=== PATIENT | male | born 1990 | race Caucasian/White ===

== ENCOUNTER 2017-07-10 13:29 | Observation (INO) ==
[2017-07-10] MEDS ORDERED: ceFAZolin 2,000 MG in D5% in Water (Mini-Bag+) 100 ML IVPB ONE (18:14)
[2017-07-10 18:40] LABS: Basophils # 0.1 K/mcL (0.0-0.2); Basophils % 1.1 %; Eosinophils # 0.2 K/mcL (0.0-0.6); Eosinophils % 1.5 %; Hematocrit 45.6 % (37.5-50.1); Hemoglobin 15.8 g/dL (12.9-16.9); Immature Granulocytes % 0.5 % (0-4); Lymphocytes # 3.6 K/mcL (0.6-4.6); Lymphocytes % 32.9 %; Mean Corpuscular HGB Conc 34.6 g/dL (31.6-35.5); Mean Corpuscular Hemoglobin 30.3 pg (28.0-33.3); Mean Corpuscular Volume 87.4 fL (83.0-100.0); Mean Platelet Volume 11.1 fL (9.4-12.4); Monocytes # 0.9 K/mcL (0.0-1.3); Monocytes % 8.4 %; Neutrophils # 6.1 K/mcL (1.6-8.9); Platelet Count 200 K/mcL (140-400); Red Blood Count 5.22 M/mcL (4.19-5.50); Red Cell Distribution Width 13.5 % (11.5-14.5); Segmented Neutrophils % 55.6 %
[2017-07-10 18:48] LABS: Activated Partial Thrombo Time 31.8 Seconds (26.0-36.0)
[2017-07-10] MEDS ORDERED: CeFAZolin Syr 3,000MG/30 ML 3,000 MG/30 ML SYRINGE IVPB ONE (18:48)
[2017-07-10 18:53] LABS: BUN/Creatinine Ratio 18 (6-26); Blood Urea Nitrogen 15 mg/dL (8-26); Calcium 9.5 mg/dL (8.6-10.8); Carbon Dioxide 23 mEq/L (19-29); Chloride 109 mEq/L (98-109); Glucose 135 mg/dL (70-99); Osmolality,Calculated 289 (280-300); Potassium 4.2 mEq/L (3.5-4.5); Sodium 138 mEq/L (136-145); eGFR For African Americans > 60 (> 60); eGFR For Non-African Americans > 60 (> 60)
[2017-07-10] MEDS: *HR* Morphine 2 MG/ML SYRINGE IVP PRN ×2 (19:07→23:43)
[2017-07-10] MEDS: Ringers Solution, Lactated 1,000 ML IVC SCH (21:37)
[2017-07-11 03:54] VITALS: BP 153/87
[2017-07-11] MEDS: *HR* Morphine 2 MG/ML SYRINGE IVP PRN ×2 (06:52→11:04)
--- NOTE | 2017-07-11 10:46 | Spine - History & Physical Rep ---
Date of Encounter: 07/10/17 Time of Encounter: 17:20 Assessment and Plan (1) Lumbar stenosis without neurogenic claudication Current visit: Yes Status: Acute On exam afebrile vital signs stable. He is in obvious distress secondary to back pain. Lungs are clear. Cardiovascular regular rate and rhythm. Abdomen soft nontender nondistended. Gait shows a marked impairment and he has a significant list with ambulation. He has marked limitation with forward flexion and extension of the lumbar spine. He can fire all lower extremity motor groups but pure motor testing is difficult secondary to pain. He has a negative Jak sign. He has no clonus. There is no clubbing cyanosis or edema. MRI of the lumbar spine dated 07/03/2017 reveals severe stenosis at L1-2 and moderate stenosis at L2-3 and L3-4. Impression: 1) severe lumbar stenosis 2) lumbar radiculopathy 3) gait impairment with functional decline Plan: We are going to admit for pain control and definitive management in the form of a laminectomy L1-L4. Risks, benefits and possible complications were discussed and the patient would like to proceed. (2) Lumbar radiculopathy Current visit: Yes Status: Acute (3) Impaired gait Current visit: Yes Status: Acute History of Present Illness Chief complaint: Difficulty walking, severe back and leg pain HPI: Mr. Alicea is a 27 year old male who has a several week history of worsening back and bilateral lower extremity pain. He states the pain radiates from the thoracic spine down to the tailbone as well. He is having difficulty walking and is bent sideward in a listing position to ambulate. He states his symptoms have progressively worsening over the past week especially. He tried narcotics neuroleptics anti-inflammatories and therapy without relief and is rating his pain as a 10 on the pain scale. Due to his difficulty walking and functional impairment as well as intractable pain he was brought in for definitive management. He denies fevers chills or bowel bladder symptomatology. Past Med Surg Social Fam HX - Past Medical History Medical history: no medical history, other Psychiatric history: no psych history - Social History Smoking Status: Current every day smoker Packs per day: 1 Smokeless Tobacco Status: No Alcohol use: none Drug use: none - Family History Mother Living Status: Still Living Hx Family Cancer: Yes Hx Family Endocrine Disorder: Yes (Diabetes) Hx Family Medical Disorders: Yes (diabetes) Medications and Allergies Gabapentin [Neurontin] 600 mg PO TID 07/10/17 [History] HYDROcodone/Acet 5/325 mg [[place] 5-325 mg] 1 - 2 tab PO HS PRN 07/10/17 [History ] 3 Allergy/AdvReac Type Severity Reaction Status Date / Time No Known Allergies Allergy Verified 07/10/17 18:35 Results - Labs Result Diagrams: 07/10/17 18:30 07/10/17 18:30 Labs: Abnormal lab results Glucose 135 mg/dL (70-99) H 07/10/17 18:30 H & H 07/10/17 Range/Units 18:30 Hgb 15.8 (12.9-16.9) g/dL Hct 45.6 (37.5-50.1) % All other labs normal.
[2017-07-11] MEDS: Ringers Solution, Lactated 1,000 ML IVC SCH (11:05)
--- NOTE | 2017-07-11 16:13 | Anesthesia Evaluation PreOp ---
Date of Encounter: 07/11/17 Time of Encounter: 16:48 - Past History Planned Operation: lami L2-5 Cardiac History: Denies any Significant Hx Pulmonary History: Smoker [employer] History: Other (bilateral radicular pain) Other Medical History: Denies Any Significant HX Anesthesia History: No Prior Anesthetic Complications, Past Anesthesia ( ablation penile warts) Alcohol Use: none Drug use: none Medications and Allergies Gabapentin [Neurontin] 600 mg PO TID 07/10/17 [History] HYDROcodone/Acet 5/325 mg [[place] 5-325 mg] 1 - 2 tab PO HS PRN 07/10/17 [History ] 3 Allergy/AdvReac Type Severity Reaction Status Date / Time No Known Allergies Allergy Verified 07/10/17 18:35 - Meds/Allergy Pre-op Review Medications Reviewed: Yes Allergies Reviewed: Yes Beta Blockers on Current Med List: No Anesthesia Results - Labs 07/10/17 18:30 07/10/17 18:30 Anesthesia Exam Selected Entries 07/11/17 03:43 Temperature 97.9 F Pulse Rate 82 Respiratory Rate 15 Blood Pressure 153/87 O2 Sat by Pulse Oximetry 96 Weight: 155kg BMI46 NPO (# of Hours): 8 Pain Scale: 10 Pain Scale Used: Numeric (1 - 10) - HEENT Pupil (Motor): EOMI Mallampati: II Oral Opening: Greater than 3 - [employer] LOC: Oriented [employer] Motor: Normal RUE, Normal LUE, Normal RLE, Normal LLE, Normal Face [employer] Sensory: Normal: RUE, LUE, RLE, LLE, Face - Cardiac Rhythm: Regular Murmur: None - Pulmonary Breath Sounds: bilateral Clear Respiratory Effort: Symmetrical Anesthesia Assess/Plan ASA Score: 3 Modified Gabrielle Scale for Level of Consciousness: Cooperative, oriented, and tranquil Anesthetic Plan: General Monitoring Plan: Standard Monitors Recovery Plan: PACU (discussed risks of prone position and GA, agrees to proceed )
[2017-07-11] MEDS ORDERED: *HR* HYDROmorphone 2 MG/ML SYRINGE ONE (16:25)
[2017-07-11] MEDS ORDERED: *HR* Midazolam HCl 2 MG/2 ML VIAL ONE (16:25)
[2017-07-11] MEDS ORDERED: *HR* Propofol 200 MG/20 ML VIAL IVP ONE ×2 (16:25→16:26)
[2017-07-11] MEDS ORDERED: *HR* FentaNYL (PF) 100 MCG/2 ML VIAL ONE (16:25)
[2017-07-11] MEDS ORDERED: *HR* Rocuronium Bromide 50 MG/5 ML VIAL ONE (16:26)
[2017-07-11] MEDS ORDERED: Lidocaine -MPF 4% 5 ML AMPUL ONE (16:26)
[2017-07-11] MEDS ORDERED: Lidocaine -MPF 2% 2 ML VIAL ONE (16:26)
[2017-07-11] MEDS ORDERED: *HR* Succinylcholine 200 MG/10 ML VIAL IVP ONE (16:26)
== END 2017-07-11 18:20 | disposition left against medical advice (07) ==
LOC: 3ANU
PROVIDERS: ADMIT Orthopaedic Surgery Orthopaedic Surgery of the Spine; ATTEND Orthopaedic Surgery Orthopaedic Surgery of the Spine

== ENCOUNTER 2019-03-26 06:16 | Inpatient (IN) ==
[~2019-03-26 06:16] MED LIST: Bacitracin 50,000 UNIT, Polymyxin B Sulfate 500,000 UNIT, Sodium Chloride IRRigation 1,... IR ONE
[2019-03-26] MEDS ORDERED: CeFAZolin Syr 3,000MG/30 ML 3,000 MG/30 ML SYRINGE IVPB ONE (06:30)
[2019-03-26] MEDS ORDERED: Ringers Solution, Lactated 1,000 ML IVC SCH (06:30)
[2019-03-26] MEDS ORDERED: Albuterol 2.5 MG/3 ML NEBULIZER IH ONE ×2 (06:30→07:33)
[2019-03-26] MEDS ORDERED: *HR* Midazolam HCl 2 MG/2 ML VIAL ONE (06:58)
[2019-03-26] MEDS ORDERED: *HR* Propofol 200 MG/20 ML VIAL IVP ONE (06:58)
[2019-03-26] MEDS ORDERED: *HR* FentaNYL (PF) 100 MCG/2 ML VIAL ONE ×2 (06:58→09:37)
[2019-03-26] MEDS ORDERED: Lidocaine HCL 4 ML Topical Solution (Laryng-O-Jet Kit Sterile Pak) TP ONE (07:00)
[2019-03-26] MEDS ORDERED: Ondansetron 4 MG/2 ML VIAL ONE ×2 (07:00→10:59)
[2019-03-26] MEDS ORDERED: Lidocaine -MPF 2% 2 ML VIAL ONE (07:00)
[2019-03-26] MEDS ORDERED: *HR* Phenylephrine 10 MG/ML VIAL ONE (07:00)
[2019-03-26] MEDS ORDERED: *HR* Succinylcholine 200 MG/10 ML VIAL IVP ONE (07:00)
[2019-03-26] MEDS ORDERED: *HR* Rocuronium Bromide 50 MG/5 ML VIAL ONE ×2 (07:13→08:41)
[2019-03-26] MEDS ORDERED: *HR* Atropine Sulfate 8 MG/20 ML VIAL IVP ONE (07:16)
[2019-03-26] MEDS ORDERED: Acetaminophen IV 1,000 MG/100 ML INFUS..BTL IVPB ONE (07:29)
[2019-03-26] MEDS ORDERED: *HR* OxyCODONE ER (12 HR) 10 MG TABLET PO ONE (07:29)
[2019-03-26] MEDS ORDERED: Gabapentin 300 MG CAPSULE PO ONE (07:29)
[2019-03-26] MEDS ORDERED: *HR* Promethazine 25 MG/ML VIAL IVP PRN (07:33)
[2019-03-26] MEDS ORDERED: *HR* FentaNYL (PF) 100 MCG/2 ML VIAL IVP PRN (07:33)
[2019-03-26] MEDS ORDERED: *HR* OxyCODONE Immed Rel 5 MG TABLET PO PRN (07:33)
[2019-03-26] MEDS ORDERED: *HR* Remifentanil 1 MG VIAL IVP ONE ×2 (07:53→09:29)
[2019-03-26] MEDS ORDERED: Dexamethasone 4 MG/ML VIAL ONE (08:10)
[2019-03-26] MEDS ORDERED: *HR* HYDROMORPHONE 2 MG/ML VIAL ONE ×2 (10:35→11:29)
[2019-03-26] MEDS ORDERED: Ondansetron 4 MG/2 ML VIAL IVP PRN (13:14)
[2019-03-26] MEDS ORDERED: Naloxone 0.4 MG/ML INJ IVP PRN (13:14)
[2019-03-26] MEDS ORDERED: Acetaminophen 325 MG TABLET PO PRN (13:14)
[2019-03-26] MEDS: *HR* HYDROcodone/Acet 5/325 mg TABLET PO PRN ×2 (13:36→21:12)
[2019-03-26] MEDS: ceFAZolin sodium 3,000 MG in 0.9 % Sodium Chloride 100 ML IVPB SCH (17:27)
[2019-03-26] MEDS: *HR* OxyCODONE Immed Rel 5 MG TABLET PO PRN ×2 (17:39→22:30)
[2019-03-26] MEDS: Ringers Solution, Lactated 1,000 ML IVC SCH (17:49)
[2019-03-27] MEDS: Ringers Solution, Lactated 1,000 ML IVC SCH (00:53)
[2019-03-27] MEDS: ceFAZolin sodium 3,000 MG in 0.9 % Sodium Chloride 100 ML IVPB SCH (02:53)
[2019-03-27] MEDS: *HR* OxyCODONE Immed Rel 5 MG TABLET PO PRN ×4 (03:52→19:20)
[2019-03-27] MEDS: *HR* HYDROcodone/Acet 5/325 mg TABLET PO PRN (04:48)
[2019-03-28] MEDS: *HR* OxyCODONE Immed Rel 5 MG TABLET PO PRN ×3 (01:37→11:45)
[2019-03-28 11:41] VITALS: BP 149/95
== END 2019-03-28 16:20 | disposition home or self-care (01) | DRG 304 ==
LOC: SAMDAY 06:16 → 3NENU 13:29
PROVIDERS: ADMIT Orthopaedic Surgery Orthopaedic Surgery of the Spine; ATTEND Orthopaedic Surgery Orthopaedic Surgery of the Spine

== ENCOUNTER 2020-02-04 23:27 | Observation (INO) ==
[2020-02-05] MEDS ORDERED: PHENYLEPHRINE INTRACAVER PRN ×2 (01:00→01:30)
[2020-02-05] MEDS ORDERED: LOK INTRACAVER PRN (01:00)
[2020-02-05] MEDS ORDERED: SODIUM CHLORIDE INTRACAVER PRN (01:00)
[2020-02-05] MEDS ORDERED: SODIUM CHLORIDE 0.9% INTRACAVER PRN (01:30)
[2020-02-05] MEDS ORDERED: *HR* Belladonna Alkaloids/Opium 60 MG RECTAL SUPPOSITORY RC PRN (01:47)
[2020-02-05] MEDS ORDERED: *HR* FentaNYL (PF) 100 MCG/2 ML VIAL IVP PRN (01:47)
[2020-02-05] MEDS ORDERED: Naloxone 0.4 MG/ML INJ IVP PRN (01:47)
[2020-02-05] MEDS ORDERED: Ketorolac 15 MG/ML VIAL IVP PRN (01:47)
[2020-02-05] MEDS ORDERED: Ondansetron 4 MG/2 ML VIAL IVP PRN (01:47)
[2020-02-05 06:32] VITALS: BP 151/98
[2020-02-05 08:18] LABS: Hematocrit 45.8 % (37.5-50.1); Hemoglobin 15.6 g/dL (12.9-16.9); Mean Corpuscular HGB Conc 34.1 g/dL (31.6-35.5); Mean Corpuscular Hemoglobin 31.2 pg (28.0-33.3); Mean Corpuscular Volume 91.6 fL (83.0-100.0); Mean Platelet Volume 10.8 fL (9.4-12.4); Platelet Count 217 K/mcL (140-400); Red Cell Distribution Width 14.3 % (11.5-14.5)
[2020-02-05 08:36] LABS: BUN/Creatinine Ratio 17 (6-26); Blood Urea Nitrogen 16 mg/dL (6-20); Calcium 8.8 mg/dL (8.6-10.3); Carbon Dioxide 26 mEq/L (23-29); Chloride 106 mEq/L (98-107); Glucose 168 mg/dL (70-105); Osmolality,Calculated 291 (280-300); Potassium 4.3 mEq/L (3.5-5.1); Sodium 138 mEq/L (136-145); eGFR For African Americans > 60 (> 60); eGFR For Non-African Americans > 60 (> 60)
== END 2020-02-05 10:58 | disposition home or self-care (01) ==
LOC: EMEROOARM 23:27 → 3NENU 23:27
PROVIDERS: ADMIT Urology; ATTEND Urology

== ENCOUNTER 2020-02-09 18:37 | Observation (INO) ==
[2020-02-09] MEDS ORDERED: *HR* HYDROmorphone (PF) 1 MG/ML SYRINGE IVP STA (19:25)
[2020-02-09] MEDS ORDERED: Ondansetron 4 MG/2 ML VIAL IVP ONE (19:26)
[2020-02-09] MEDS ORDERED: Naloxone 0.4 MG/ML INJ IVP PRN (19:56)
[2020-02-09] MEDS ORDERED: cloNIDine HCL 0.1 MG TABLET PO PRN (21:16)
[2020-02-09] MEDS: Gabapentin 300 MG CAPSULE PO SCH (22:19)
[2020-02-10] MEDS: Acetaminophen 325 MG TABLET PO PRN ×2 (00:19→10:00)
[2020-02-10] MEDS: *HR* HYDROmorphone (PF) 1 MG/ML SYRINGE IVP PRN ×3 (00:19→12:40)
[2020-02-10 03:34] LABS: Basophils # 0.1 K/mcL (0.0-0.2); Basophils % 0.5 %; Eosinophils # 0.1 K/mcL (0.0-0.6); Eosinophils % 0.7 %; Hematocrit 42.1 % (37.5-50.1); Hemoglobin 14.1 g/dL (12.9-16.9); Immature Granulocytes % 0.6 % (0-4); Lymphocytes # 3.1 K/mcL (0.6-4.6); Lymphocytes % 17.5 %; Mean Corpuscular HGB Conc 33.5 g/dL (31.6-35.5); Mean Corpuscular Hemoglobin 30.9 pg (28.0-33.3); Mean Corpuscular Volume 92.3 fL (83.0-100.0); Mean Platelet Volume 10.7 fL (9.4-12.4); Monocytes # 1.7 K/mcL (0.0-1.3); Monocytes % 9.7 %; Neutrophils # 12.6 K/mcL (1.6-8.9); Platelet Count 227 K/mcL (140-400); Red Blood Count 4.56 M/mcL (4.19-5.50); Red Cell Distribution Width 13.8 % (11.5-14.5); White Blood Count 17.8 K/mcL (4.3-11.1)
[2020-02-10 03:54] LABS: BUN/Creatinine Ratio 15 (6-26); Blood Urea Nitrogen 13 mg/dL (6-20); Carbon Dioxide 25 mEq/L (23-29); Chloride 103 mEq/L (98-107); Glucose 166 mg/dL (70-105); Osmolality,Calculated 284 (280-300); Sodium 135 mEq/L (136-145); eGFR For African Americans > 60 (> 60); eGFR For Non-African Americans > 60 (> 60)
[2020-02-10] MEDS ORDERED: Metoprolol XL (24 HR) Succ 50 MG TAB.ER.24H PO SCH (09:00)
[2020-02-10] MEDS: Gabapentin 300 MG CAPSULE PO SCH ×3 (10:00→20:14)
[2020-02-10] MEDS ORDERED: *HR* FentaNYL (PF) 100 MCG/2 ML VIAL ONE ×2 (15:51→16:51)
[2020-02-10] MEDS ORDERED: *HR* Midazolam HCl 2 MG/2 ML VIAL ONE (15:51)
[2020-02-10] MEDS ORDERED: *HR* Propofol 200 MG/20 ML VIAL IVP ONE (15:51)
[2020-02-10] MEDS ORDERED: *HR* Succinylcholine 200 MG/10 ML VIAL IVP ONE (15:53)
[2020-02-10] MEDS ORDERED: Dexamethasone 4 MG/ML VIAL ONE (15:55)
[2020-02-10] MEDS ORDERED: Lidocaine -MPF 2% 2 ML VIAL ONE (15:56)
[2020-02-10] MEDS ORDERED: Ondansetron 4 MG/2 ML VIAL ONE (15:56)
[2020-02-10] MEDS ORDERED: *HR* Meperidine 25 MG/ML SYRINGE IVP PRN ×2 (15:58→19:06)
[2020-02-10] MEDS ORDERED: *HR* OxyCODONE Immed Rel 5 MG TABLET PO PRN (15:58)
[2020-02-10] MEDS ORDERED: *HR* HYDROmorphone PF 0.5 MG/0.5 ML SYRINGE IVP PRN ×2 (15:58→19:06)
[2020-02-10] MEDS ORDERED: Ondansetron 4 MG/2 ML VIAL IVP ONE ×2 (15:58→19:06)
[2020-02-10] MEDS ORDERED: Lidocaine 1% 20 ML MDV ONE (16:25)
[2020-02-10] MEDS ORDERED: Acetaminophen IV 1,000 MG/100 ML BAG ONE (16:33)
[2020-02-10] MEDS ORDERED: ceFAZolin 3,000 MG in 0.9 % Sodium Chloride 100 ML IVPB ONE (16:40)
[2020-02-10] MEDS ORDERED: Acetaminophen 325 MG TABLET PO PRN (19:06)
[2020-02-10] MEDS ORDERED: Naloxone 0.4 MG/ML INJ IVP PRN (19:06)
[2020-02-10] MEDS ORDERED: cloNIDine HCL 0.1 MG TABLET PO PRN (19:06)
[2020-02-10] MEDS ORDERED: *HR* HYDROmorphone (PF) 1 MG/ML SYRINGE IVP PRN (19:06)
[2020-02-11 02:40] LABS: Basophils % 0.1 %; Hematocrit 42.3 % (37.5-50.1); Hemoglobin 13.7 g/dL (12.9-16.9); Immature Granulocytes % 0.9 % (0-4); Lymphocytes % 4.3 %; Mean Corpuscular HGB Conc 32.4 g/dL (31.6-35.5); Mean Corpuscular Hemoglobin 29.8 pg (28.0-33.3); Mean Corpuscular Volume 92.2 fL (83.0-100.0); Mean Platelet Volume 11.1 fL (9.4-12.4); Monocytes # 1.5 K/mcL (0.0-1.3); Monocytes % 6.4 %; Neutrophils # 20.1 K/mcL (1.6-8.9); Platelet Count 265 K/mcL (140-400); Red Blood Count 4.59 M/mcL (4.19-5.50); Red Cell Distribution Width 13.4 % (11.5-14.5); Segmented Neutrophils % 88.3 %; White Blood Count 22.8 K/mcL (4.3-11.1)
[2020-02-11 02:44] LABS: BUN/Creatinine Ratio 19 (6-26); Blood Urea Nitrogen 20 mg/dL (6-20); Calcium 9.2 mg/dL (8.6-10.3); Carbon Dioxide 26 mEq/L (23-29); Chloride 99 mEq/L (98-107); Glucose 301 mg/dL (70-105); Magnesium 2.3 mg/dL (1.6-2.6); Osmolality,Calculated 290 (280-300); Phosphorous 2.6 mg/dL (2.7-4.5); Potassium 4.5 mEq/L (3.5-5.1); Sodium 133 mEq/L (136-145); eGFR For African Americans > 60 (> 60); eGFR For Non-African Americans > 60 (> 60)
[2020-02-11 06:58] VITALS: BP 138/80
[2020-02-11 08:20] LABS: Estimated Average Glucose 166 mg/dl; Hemoglobin A1C 7.4 %
[2020-02-11] MEDS: Gabapentin 300 MG CAPSULE PO SCH (08:49)
[2020-02-11] MEDS ORDERED: Metoprolol XL (24 HR) Succ 50 MG TAB.ER.24H PO SCH (09:00)
[2020-02-11] MEDS ORDERED: *HR* Metformin 500 MG TABLET PO SCH (09:05)
== END 2020-02-11 11:01 | disposition home or self-care (01) ==
LOC: EMEROOARM 18:37 → 3BNU 18:37 → SUATTDRO 20:08 → 3BNU 20:45
PROVIDERS: ADMIT Internal Medicine; ATTEND Internal Medicine